=== PATIENT | male | born 1975 | race Caucasian/White ===

== ENCOUNTER 2022-02-14 00:58 | Emergency (ER) | payer SELFPAY ==
[~2022-02-14] VITALS: Ht 172.7 cm; Wt 80.7 kg
[2022-02-14 01:48] VITALS: BP 99/63
== END 2022-02-14 02:04 | disposition home or self-care (01) ==
LOC: ER 01:07
DX: S80.02XA Contusion of left knee, initial encounter (principal); X58.XXXA Exposure to other specified factors, initial encounter; Y93.89 Activity, other specified; Y92.89 Other specified places as the place of occurrence of the external cause; Y99.8 Other external cause status